=== PATIENT | male | born 1980 | race Hispanic/Latino ===

== ENCOUNTER 2018-06-13 10:17 | Emergency (ER) | payer BC ==
--- NOTE | 2018-06-13 12:25 | RAD REPORT ---
EXAM DESCRIPTION: RAD - Chest Pa And Lat (2 Views) - 06/13/2018 12:17 pm CLINICAL HISTORY: Cough, congestion, fever COMPARISON: None. TECHNIQUE: PA and lateral views of the chest were obtained. FINDINGS: The lungs are clear of a focal process. No failure or volume overload. Lung markings are n ot outside of normal range for film technique and body habitus. Heart size is normal and central va sculature is within normal limits. No pleural effusion or pneumothorax seen. No acute bony finding noted. No aortic abnormality. IMPRESSION: No acute cardiopulmonary process.
--- NOTE | 2018-06-13 13:10 | ER ---
Nurse's Notes 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 Transition of care: patient was not received from another setting of care. Onset of symptoms was June 13, 2018. Risk Assessment: Do you want to hurt yourself or someone else? Patient reports no desire to harm self or others. Initial Sepsis Screen: Does the patient meet any 2 criteria? No. Patient's initial sepsis screen is negative. Does the patient have a suspected source of infection? No. Patient's initial sepsis screen is negative. Care prior to arrival: None. 10:27 Method Of Arrival: Ambulatory 10:27 Acuity: ROCKY 4 hj Triage Assessment: 10:29 General: Appears in no apparent distress. uncomfortable, Behavior is calm, cooperative, hj appropriate for age. Pain: Complains of pain in body. Historical: - Allergies: 10:29 No Known Allergies; hj - Home Meds: 10:29 Lisinopril Oral [Active]; Metformin Oral [Active]; hj - PMHx: 10:29 Hypertension; Diabetes - NIDDM; hj - PSHx: 10:29 lap band; hj - Immunization history:: Adult Immunizations up to date. - Social history:: Smoking status: Patient/guardian denies using tobacco, Patient/guardian denies using alcohol. - Ebola Screening: : Patient negative for fever greater than or equal to 101.5 degrees Fahrenheit, and additional compatible Ebola Virus Disease symptoms Patient denies exposure to infectious person Patient denies travel to an Ebola-affected area in the 21 days before illness onset. Screenin:30 Abuse screen: Denies threats or abuse. Denies injuries from another. Nutritional hj screening: No deficits noted. Tuberculosis screening: No symptoms or risk factors identified. Fall Risk None identified. Assessment: 13:00 General: Appears. Neuro: Level of Consciousness is awake, alert, obeys commands. iw Cardiovascular: Capillary refill < 3 seconds in bilateral Patient's skin is warm and dry. Respiratory: Respiratory effort is even, unlabored, Respiratory pattern is regular. Derm: Skin is intact, is healthy with good turgor. Musculoskeletal: Range of motion: intact in all extremities. Vital Signs: 10:30 BP 139 / 91; Pulse 99; Resp 18; Temp 98.5(TE); Pulse Ox 96% on R/A; Weight 176.9 kg; hj Height 5 ft. 11 in. (180.34 cm); Pain 5/10; 10:30 Body Mass Index 54.39 (176.90 kg, 180.34 cm) ED Course: 10:20 Patient arrived in ED. rg4 10:21 Manuel Antunez MD is Private Physician. rg4 10:24 Holli Vega FNP-C is [facility]. kb 10:24 Tito Mcdaniel MD is Attending Physician. kb 10:29 Triage completed. hj 10:30 Arm band placed on right wrist. hj 10:30 Patient has correct armband on for positive identification. Bed in low position. Call hj light in reach. Side rails up X 1. 10:46 Angelina Quinones, RN is Primary Nurse. iw 12:15 X-ray completed. Patient tolerated procedure well. Patient moved back from radiology. ls3 12:16 Chest Pa And Lat (2 Views) XRAY In Process Unspecified. EDMS 13:00 No provider procedures requiring assistance completed. Patient did not have IV access iw during this emergency room visit. Administered Medications: No medications were administered Outcome: 13:09 Discharge ordered by MD. kb 13:19 Discharged to home ambulatory. iw 13:19 Condition: good 13:19 Discharge instructions given to patient, Instructed on discharge instructions, follow up and referral plans. Demonstrated understanding of instructions, follow-up care. 13:20 Patient left the ED. iw Signatures: Dispatcher [employer] EDMS Holli Vega FNP-C FNP-Angelina Turpin RN RN Juan Carlos Mckeon RN RN hj Garcia, Rubi rg4 Lucien Agosto ls3 Corrections: (The following items were deleted from the chart) 10:32 10:30 Pulse 99bpm; Resp 18bpm; Pulse Ox 96% RA; Temp 98.5F Temporal; 176.9 kg; Height 5 hj ft. 11 in.; BMI: 54.3; Pain 5/10; hj
--- NOTE | 2018-06-13 13:11 | EDPHYS ---
Physician Documentation [facility] Name: Soren Carmen Age: 37 yrs Sex: Male : 1980 Arrival Date: 06/13/2018 Time: 10:20 Bed 11 Private MD: Manuel Antunez ED Physician Tito Mcdaniel HPI: 06/13 12:58 This 37 yrs old Male presents to ER via Ambulatory with complaints of Flu kb Symptoms. 12:59 The patient or guardian reports cough, that is intermittent, described as moderate, kb with no sputum, flu symptoms, low-grade fever, myalgias. Onset: The symptoms/episode began/occurred this morning. Severity of symptoms: At their worst the symptoms were moderate, in the emergency department the symptoms are unchanged. Modifying factors: The symptoms are alleviated by nothing, the symptoms are aggravated by nothing. Associated signs and symptoms: The patient has no apparent associated signs or symptoms. The patient has not experienced similar symptoms in the past. The patient has not recently seen a physician. Pt reports chills, sweating, cough and body aches that started this morning. Historical: - Allergies: 10:29 No Known Allergies; hj - Home Meds: 10:29 Lisinopril Oral [Active]; Metformin Oral [Active]; hj - PMHx: 10:29 Hypertension; Diabetes - NIDDM; hj - PSHx: 10:29 lap band; hj - Immunization history:: Adult Immunizations up to date. - Social history:: Smoking status: Patient/guardian denies using tobacco, Patient/guardian denies using alcohol. - Ebola Screening: : Patient negative for fever greater than or equal to 101.5 degrees Fahrenheit, and additional compatible Ebola Virus Disease symptoms Patient denies exposure to infectious person Patient denies travel to an Ebola-affected area in the 21 days before illness onset. ROS: 12:59 ENT: Negative for injury, pain, and discharge, Neck: Negative for injury, pain, and kb swelling, Cardiovascular: Negative for chest pain, palpitations, and edema, Abdomen/GI: Negative for abdominal pain, nausea, vomiting, diarrhea, and constipation, MS/Extremity: Negative for injury and deformity, Skin: Negative for injury, rash, and discoloration, Neuro: Negative for headache, weakness, numbness, tingling, and seizure. 12:59 Constitutional: Positive for body aches, chills, malaise, Negative for fatigue, fever, poor PO intake, weight loss. 12:59 Respiratory: Positive for cough, Negative for dyspnea on exertion, hemoptysis, orthopnea, pleurisy, shortness of breath, sputum production, wheezing. Exam: 13:06 Constitutional: This is a well developed, well nourished patient who is awake, alert, kb and in no acute distress. Head/Face: Normocephalic, atraumatic. Neck: Trachea midline, no thyromegaly or masses palpated, and no cervical lymphadenopathy. Supple, full range of motion without nuchal rigidity, or vertebral point tenderness. No Meningismus. Chest/axilla: Normal chest wall appearance and motion. Nontender with no deformity. No lesions are appreciated. Cardiovascular: Regular rate and rhythm with a normal S1 and S2. No gallops, murmurs, or rubs. Normal PMI, no JVD. No pulse deficits. Respiratory: Lungs have equal breath sounds bilaterally, clear to auscultation and percussion. No rales, rhonchi or wheezes noted. No increased work of breathing, no retractions or nasal flaring. Abdomen/GI: Soft, non-tender, with normal bowel sounds. No distension or tympany. No guarding or rebound. No evidence of tenderness throughout. Skin: Warm, dry with normal turgor. Normal color with no rashes, no lesions, and no evidence of cellulitis. MS/ Extremity: Pulses equal, no cyanosis. Neurovascular intact. Full, normal range of motion. Neuro: Awake and alert, GCS 15, oriented to person, place, time, and situation. Cranial nerves II-XII grossly intact. Motor strength 5/5 in all extremities. Sensory grossly intact. Cerebellar exam normal. Normal gait. 13:06 ENT: External ear(s): are unremarkable, Ear canal(s): are normal, TM's: are normal, Nose: is normal, Mouth: is normal, Posterior pharynx: Airway: normal, Tonsils: bilaterally enlarged, with erythema, Uvula: normal, midline, swelling, that is mild, erythema, that is moderate, exudate, is not appreciated. Vital Signs: 10:30 BP 139 / 91; Pulse 99; Resp 18; Temp 98.5(TE); Pulse Ox 96% on R/A; Weight 176.9 kg; hj Height 5 ft. 11 in. (180.34 cm); Pain 5/10; 10:30 Body Mass Index 54.39 (176.90 kg, 180.34 cm) MDM: 10:47 Patient medically screened. kb 13:06 Data reviewed: vital signs, nurses notes. Data interpreted: Pulse oximetry: on room air kb is 96 %. Interpretation: normal. Counseling: I had a detailed discussion with the patient and/or guardian regarding: the historical points, exam findings, and any diagnostic results supporting the discharge/admit diagnosis, lab results, radiology results, the need for outpatient follow up, a family practitioner, to return to the emergency department if symptoms worsen or persist or if there are any questions or concerns that arise at home. 06/13 10:32 Order name: Flu; Complete Time: 11:04 hj 06/13 11:50 Order name: Strep; Complete Time: 12:46 kb 06/13 11:50 Order name: Chest Pa And Lat (2 Views) XRAY; Complete Time: 12:27 kb 06/13 12:44 Order name: Throat Culture EDMS Administered Medications: No medications were administered Disposition: 06/13/18 13:09 Discharged to Home. Impression: Acute upper respiratory infection, unspecified. - Condition is Stable. - Discharge Instructions: Upper Respiratory Infection, Adult, [id number]. - Medication Reconciliation Form, Thank You Letter, Antibiotic Education, Prescription Opioid Use, Work release form form. - Follow up: Emergency Department; When: As needed; Reason: Worsening of condition. Follow up: Private Physician; When: 2 - 3 days; Reason: Recheck today's complaints, Continuance of care, Re-evaluation by your physician. Addendum: 06/14/2018 16:45 Co-signature as Attending Physician, Tito Mcdaniel MD I agree with the assessment and k dr plan of care. Signatures: Dispatcher [employer] EDMS Holli Vega, ELMIRA ACEVEDO-Tito Knox MD MD [facility] Angelina Quinones RN RN Juan Carlos Mckeon RN RN Corrections: (The following items were deleted from the chart) 06/13 13:20 13:09 06/13/2018 13:09 Discharged to Home. Impression: Acute upper respiratory iw infection, unspecified. Condition is Stable. Forms are Medication Reconciliation Form, Thank You Letter, Antibiotic Education, Prescription Opioid Use. Follow up: Emergency Department; When: As needed; Reason: Worsening of condition. Follow up: Private Physician; When: 2 - 3 days; Reason: Recheck today's complaints, Continuance of care, Re-evaluation by your physician. kb
== END 2018-06-13 13:20 | disposition home or self-care (01) ==
LOC: ER 10:17
DX: J06.9 Acute upper respiratory infection, unspecified (principal); I10 Essential (primary) hypertension; E11.9 Type 2 diabetes mellitus without complications
CPT/HCPCS: 71046; 87070; 87081; 87804; 99283

== ENCOUNTER 2023-04-10 11:25 | Emergency (ER) | payer BC ==
--- OUTSIDE RECORDS SUMMARY | 2023-04-10 11:27 | XMS REPORT | Continuity of Care Document ---
:1980 Author Organization [facility] t Address [address] [facility] [address] [place] [id number] Care Team Providers Name Role Phone BHAVIN GOODEN Attending Clinician Unavailable MICHAEL PFEIFFER Attending Clinician Unavailable Lab, Adc Fam Pob I Attending Clinician Unavailable Michael Ivy Attending Clinician Lab, Pcp Covid Attending Clinician Unavailable Payers Payer Name Policy Type Policy Number Effective Date Expiration Date S [facility] [id number] 2015 00:00:00 Problems This patient has no known problems. Allergies, Adverse Reactions, Alerts Allergy Allergy Status Severity Reaction(s) Onset Inactive Treating Comm ents Source Name Type Date Date Clinician NO KNOWN Drug Active [facility] ALLERGIE Class ity of [facility] Social History Social Habit Start Date Stop Date Quantity Comments [facility] to [facility]2 [facility] sure [facility] [place] [facility] Smoking Status Start Date Stop Date Source Unknown if ever smoked [facility] y [facility] Medications Ordered Filled Start Stop Current Ordering Indication Dosage Frequency Signature Comments Components Source Medication Medication Date Date Medication? Clinician (SIG) Name Name ibuprofen Yes 600mg Take 1 Tab U nivers (MOTRIN) 1-27 by mouth ity of 600 mg 00:00: every 6 [place] tablet 00 (six) Medical hours as Branch needed for Pain (scale 1-3). ibuprofen Yes 600mg Take 1 Tab U nivers (MOTRIN) 1-27 by mouth ity of 600 mg 00:00: every 6 [place] tablet 00 (six) Medical hours as Branch needed for Pain (scale 1-3). Procedures This patient has no known procedures. Encounters Start End Encounter Admission Attending Care Care Encounter Source Date/Time Date/Time Type Type Clinicians Facility Department ID 2020-09-21 2020-09-21 Outpatient [facility] [id number] Univers 18:20:00 18:20:00 ity [facility] 2020-08-31 2020-08-31 Outpatient Zoran GOODEN, [facility] [id number] Univers 18:20:00 18:20:00 BHAVIN [facility] 2020-03-15 2020-03-15 Outpatient Zoran PFEIFFER [facility] [id number] Univers 14:40:00 14:40:00 MICHAEL [facility] 2020-03-15 2020-03-15 Laboratory Lab, Adc Fam Pob I [facility] [id number] Univers 13:34:37 13:54:37 Only Michael Pfeiffer [facility] [id number] [facility] [place] [id number] [facility] as Professio [phone] In dical [facility] [address] [place] [address] 2020-03-15 2020-03-15 Letter Lab, Pcp [facility] [id number] Univers 00:00:00 00:00:00 (Out) [facility] Health [id number] it [facility] [place] [id number] [facility] [phone] In dical nal [address] [place] [address] Office [address] [facility] Results This patient has no known results.
[2023-04-10 12:27] LABS: SARS-CoV-2 Antigen Rapid Res Positive (Negative)
--- NOTE | 2023-04-10 12:29 | EDPHYS ---
Physician Documentation [facility] Name: Soren Carmen Age: 42 yrs Sex: Male : 1980 Arrival Date: 04/10/2023 Time: 11:25 Bed IW4 Private MD: ED Physician Jony Wylie HPI: 04/11 08:46 This 42 yrs old Male presents to ER via Ambulatory with complaints of Flu sb4 Symptoms. 08:46 Onset: The symptoms/episode began/occurred 3 day(s) ago. Associated signs and symptoms: sb4 Pertinent positives: congestion, cough, fever, headache, seizure. Modifying factors: The patient symptoms are alleviated by nothing, the patient symptoms are aggravated by nothing. The patient has not experienced similar symptoms in the past. The patient has not recently seen a physician. been taking OTC medications without relief. Historical: - Allergies: 04/10 11:50 No Known Allergies; hb - Home Meds: 11:50 lisinopril Oral [Active]; Metformin Oral [Active]; hb - PMHx: 11:50 Diabetes - NIDDM; Hypertension; hb - PSHx: 11:50 None; hb - Immunization history:: Adult Immunizations up to date. - Social history:: Smoking status: Patient denies any tobacco usage or history of. ROS: 04/11 08:48 Constitutional: Positive for body aches, fatigue, sb4 ENT: Positive for sore throat, Neuro: Positive for headache, All other systems are negative, 08:50 Cardiovascular: Negative for chest pain, palpitations, and edema, Respiratory: Negative sb4 for shortness of breath, cough, wheezing, and pleuritic chest pain, Exam: 08:50 Constitutional: This is a well developed, well nourished patient who is awake, alert, sb4 and in no acute distress. Head/Face: Normocephalic, atraumatic. Eyes: Extra-ocular motions intact. Periorbital areas with no swelling, redness, or edema. Cardiovascular: Regular rate and rhythm with a normal S1 and S2. Respiratory: Lungs have equal breath sounds bilaterally, clear to auscultation and percussion. No rales, rhonchi or wheezes noted. No increased work of breathing, no retractions or nasal flaring. Abdomen/GI: Soft, non-tender, no distension. Skin: Warm, dry with normal turgor. Normal color with no rashes, no lesions, and no evidence of cellulitis. MS/ Extremity: Pulses equal, no cyanosis. Neurovascular intact. Full, normal range of motion. Neuro: Awake and alert, GCS 15, oriented to person, place, time, and situation. Motor strength 5/5 in all extremities. Sensory grossly intact. 08:50 Head/face: Sinus tenderness, 08:50 ENT: Exam is negative for epistaxis, nasal discharge, enlarged tonsils, Vital Signs: 04/10 11:49 BP 153 / 101; Pulse 90; Resp 18; Temp 98(TE); Pulse Ox 100% on R/A; Weight 142.88 kg; hb Height 5 ft. 11 in. ; Pain 6/10; 12:57 BP 134 / 83; Pulse 87; Resp 17; Temp 97.5; Pulse Ox 99% ; jl7 11:49 Body Mass Index 43.93 (142.88 kg, 180.34 cm) hb 11:49 Pain Scale: Adult hb MDM: 11:52 Patient medically screened. sb4 04/11 08:50 Differential diagnosis: viral Infection, bacterial infection, URI. Data reviewed: vital sb4 signs, nurses notes, lab test result(s), and as a result, I will discharge patient. Counseling: I had a detailed discussion with the patient and/or guardian regarding the historical points, exam findings, and any diagnostic results supporting the discharge/admit diagnosis, lab results, to return to the emergency department if symptoms worsen or persist or if there are any questions or concerns that arise at home. 04/10 11:52 Order name: SARS RAPID; Complete Time: 12:28 sb4 04/10 11:52 Order name: Flu; Complete Time: 12:28 sb4 04/10 11:52 Order name: Strep sb4 04/10 12:31 Order name: Throat Culture EDMS Administered Medications: No medications were administered Disposition Summary: 04/10/23 12:28 Discharge Ordered Notes: Location: Home sb4 Problem: an ongoing problem sb4 Symptoms: are unchanged sb4 Condition: Stable sb4 Diagnosis - SARS-associated coronavirus as the cause of diseases classified elsewhere sb4 Followup: sb4 - With: Emergency Department - When: As needed - Reason: Trouble breathing, Worsening of condition Discharge Instructions: - Discharge Summary Sheet sb4 - 10 Things You Can Do to Manage Your COVID-19 Symptoms at Home - [facility] (12/27/2020) sb4 - COVID-19: Quarantine and Isolation - [facility] (09/10/2021) sb4 - COVID-19: What to Do If You Are Sick - [facility] (09/02/2021) sb4 Forms: - Work release form sb4 - Medication Reconciliation Form sb4 - Thank You Letter sb4 - Antibiotic Education sb4 - Prescription Opioid Use sb4 - Patient Portal Instructions sb4 - Leadership Thank You Letter sb4 Prescriptions: - dexamethasone 6 mg Oral tablet - take 1 tablet ORAL route daily; 5 tablet; Refills: 0, Product Selection sb4 Permitted Addendum: 15:05 I was immediately available for consultation during this patient's visit. I did not e c2 personally see the patient or guide the patient's care.. Signatures: Dispatcher [employer] Laney Strauss RN RN hb Brown, Sophia, PA-C PAHillary sb4 Jony Wylie MD MD ec2
--- NOTE | 2023-04-10 12:29 | ER ---
Nurse's Notes [facility] Name: Soren Carmen Age: 42 yrs Sex: Male : 1980 Arrival Date: 04/10/2023 Time: 11:25 Bed IW4 Private MD: Diagnosis: SARS-associated coronavirus as the cause of diseases classified elsewhere Presentation: 04/10 11:49 Chief complaint: Fever, sore throat, body aches, and headache x 4 days, loss of taste hb and smell today. Denies chest pain/SOB. Coronavirus screen: Client presents with at least one sign or symptom that may indicate coronavirus-19. Provider contacted for isolation considerations. Ebola Screen: No symptoms or risks identified at this time. Initial Sepsis Screen: Does the patient meet any 2 criteria? No. Patient's initial sepsis screen is negative. Does the patient have a suspected source of infection? No. Patient's initial sepsis screen is negative. Risk Assessment: Do you want to hurt yourself or someone else? Patient reports no desire to harm self or others. Onset of symptoms was April 06, 2023. 11:49 Method Of Arrival: Ambulatory hb 11:49 Acuity: ROCKY 4 hb Historical: - Allergies: 11:50 No Known Allergies; hb - Home Meds: 11:50 lisinopril Oral [Active]; Metformin Oral [Active]; hb - PMHx: 11:50 Diabetes - NIDDM; Hypertension; hb - PSHx: 11:50 None; hb - Immunization history:: Adult Immunizations up to date. - Social history:: Smoking status: Patient denies any tobacco usage or history of. Vital Signs: 11:49 BP 153 / 101; Pulse 90; Resp 18; Temp 98(TE); Pulse Ox 100% on R/A; Weight 142.88 kg; hb Height 5 ft. 11 in. ; Pain 6/10; 12:57 BP 134 / 83; Pulse 87; Resp 17; Temp 97.5; Pulse Ox 99% ; jl7 11:49 Body Mass Index 43.93 (142.88 kg, 180.34 cm) hb 11:49 Pain Scale: Adult hb ED Course: 11:27 Patient arrived in ED. im 11:27 Felicia Velazquez PA-C is PHCP. sb4 11:27 Jony Wylie MD is Attending Physician. sb4 11:50 Triage completed. hb 11:52 Arm band placed on. hb 11:55 Strep Sent. hb 11:55 Flu Sent. hb 11:55 SARS RAPID Sent. hb 12:57 Lianna Maxwell, RN is Primary Nurse. jl7 12:57 Patient has correct armband on for positive identification. jl7 12:57 No provider procedures requiring assistance completed. Patient did not have IV access jl7 during this emergency room visit. Administered Medications: No medications were administered Outcome: 12:28 Discharge ordered by . sb4 12:58 Patient left the ED. jl7 Signatures: Laney Dover RN RN Lianna Maxwell, RN RN jl7 Felicia Velazquez, PAHillary PA-C 4 Joanne Alcocer
[2023-04-10 13:03] VITALS: BP 134/83; TEMP 97.5; O2SAT 99
== END 2023-04-10 12:58 | disposition home or self-care (01) ==
LOC: ER 11:25
DX: U07.1 COVID-19 (principal); E11.9 Type 2 diabetes mellitus without complications; I10 Essential (primary) hypertension
CPT/HCPCS: 36415; 87070; 87081; 87804; 87811; 99283